=== PATIENT | male | born 2000 | race Caucasian/White ===

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

== ENCOUNTER 2021-05-12 21:19 | Emergency (ER) | payer BC, OTHER ==
[2021-05-12] MEDS ORDERED: Fluorescein Opthalmic Strip ONE (21:31)
[2021-05-12] MEDS ORDERED: Proparacaine 0.5% Opth 15 ML BOT ONE (21:31)
== END 2021-05-12 22:05 | disposition home or self-care (01) ==
LOC: ERS 21:19
DX: H16.133 Photokeratitis, bilateral (principal); F17.290 Nicotine dependence, other tobacco product, uncomplicated
CPT/HCPCS: 99283

== ENCOUNTER 2022-10-09 10:56 | Outpatient (CLI) | payer BC | END 2022-10-09 10:57 | disposition home or self-care (01) | LOC: RAD 10:56 | PROVIDERS: ATTEND Family Medicine | DX: S19.9XXA Unspecified injury of neck, initial encounter (principal); S12.600A Unspecified displaced fracture of seventh cervical vertebra, initial encounter for closed fracture | CPT/HCPCS: 72040 ==

== ENCOUNTER 2022-10-09 11:38 | Observation (INO) | payer BC ==
[~2022-10-09 11:38] MED LIST changes: -EPINEPHrine 1 MG/ML AMP ONE; -Gadobenate Dimeglumine 529 MG/1 ML (20ML VIAL) ONE; +Iopamidol-370 76% 500 ML MDV (1 ML CHARGE) ONE; -Iopamidol-M 300 61% 15 ML VIAL ONE; -Lidocaine 1% PF 10 ML AMP ONE; -Sodium Chloride 0.9% 50 ML ONE
[2022-10-09] MEDS ORDERED: fentaNYL 50 mcg/mL 1 mL Vial ONE (12:09)
[2022-10-09] MEDS ORDERED: Ondansetron PF 4 MG/2 ML Vial ONE (12:09)
[2022-10-09 12:15] LABS: #Eosinphils 0.2 thou/uL (0.0-0.7); #Neutrophils 7.6 thou/uL (1.40-6.50); %Basophils 0.4 % (0.0-1.0); %Eosinophils 1.5 % (0.0-10.0); %Lymphocytes 22.4 % (21.0-51.0); %Neutrophils 66.5 % (42.0-75.0); Hemoglobin 13.9 g/dL (14.0-18.0); Mean Corpuscular HGB CONC 32.6 g/dL (32.0-36.0); Platelet Count 295 10x3/uL (130-400); RBC Distribution Width 13.2 % (11.5-14.5); White Blood Cell (WBC) Count 11.4 10x3/uL (4.8-10.8)
[2022-10-09 12:40] LABS: ALT (SGPT) 15 U/L (8-55); AST (SGOT) 23 U/L (5-34); Albumin 3.9 g/dL (3.5-5.0); Alkaline Phosphatase 84 U/L (40-110); Anion Gap 16 mmol/L (10-20); BUN (Urea Nitrogen) 11 mg/dL (8.9-20.6); Bilirubin, Total 0.4 mg/dL (0.2-1.2); Calc. Creatinine Clearance 0 mL/min (70-130); Calcium 9.2 mg/dL (7.8-10.44); Carbon Dioxide 26 mmol/L (22-29); Chloride 103 mmol/L (98-107); Estimated GFR 125; Globulin 2.7 g/dL (2.4-3.5); Glucose 88 mg/dL (70-105); Potassium 4.6 mmol/L (3.5-5.1); Protein, Total 6.6 g/dL (6.0-8.3); Sodium 140 mmol/L (136-145)
[2022-10-09] MEDS ORDERED: Morphine 4 MG/ML VIAL ONE (14:22)
[2022-10-09] MEDS ORDERED: Dexamethasone 10 MG/ML VIAL ONE (14:52)
[2022-10-09] MEDS ORDERED: Dextrose 5% in Water 1,000 ML IV PRN (15:47)
[2022-10-09] MEDS ORDERED: Morphine 2 MG/ML VIAL SLOW IVP PRN (15:47)
[2022-10-09] MEDS ORDERED: Ondansetron ODT 4 MG TAB PO PRN (15:47)
[2022-10-09] MEDS ORDERED: Glucagon 1 MG/ML KIT IM PRN (15:47)
[2022-10-09] MEDS ORDERED: Ipratropium/Albuterol 3 ML NEB NEB PRN (15:47)
[2022-10-09] MEDS ORDERED: Ondansetron PF 4 MG/2 ML Vial IVP PRN (15:47)
[2022-10-09] MEDS ORDERED: Dextrose 50% Abboject 50 ML SYRINGE SLOW IVP PRN (15:47)
[2022-10-09 17:34] VITALS: BMI 18.8
[2022-10-09] MEDS: Sodium Chloride 0.9% 1,000 ML IV SCH (17:40)
[2022-10-09] MEDS: Morphine 4 MG/ML VIAL SLOW IVP PRN ×2 (17:41→20:54)
[2022-10-09] MEDS: Dexamethasone 4 mg/ml Vial SLOW IVP SCH ×2 (17:42→22:45)
[2022-10-09] MEDS ORDERED: traMADol HCl 50 MG TAB PO PRN (20:06)
[2022-10-09] MEDS: Famotidine/PF 20 mg/2ml Vial SLOW IVP SCH (20:54)
[2022-10-09] MEDS: Pregabalin 50 MG CAP PO SCH (20:56)
[2022-10-09] MEDS: Cyclobenzaprine 10 MG TAB PO PRN (20:57)
[2022-10-09] MEDS: Acetaminophen 500 MG TAB PO SCH (22:43)
[2022-10-09] MEDS: traMADol HCl 50 MG TAB PO SCH (22:44)
[2022-10-10] MEDS: Morphine 4 MG/ML VIAL SLOW IVP PRN (03:43)
[2022-10-10] MEDS: Cyclobenzaprine 10 MG TAB PO PRN (03:45)
[2022-10-10] MEDS: Sodium Chloride 0.9% 1,000 ML IV SCH (03:45)
[2022-10-10] MEDS: Dexamethasone 4 mg/ml Vial SLOW IVP SCH ×2 (03:45→09:52)
[2022-10-10] MEDS: traMADol HCl 50 MG TAB PO SCH ×2 (06:01→11:08)
[2022-10-10] MEDS: Acetaminophen 500 MG TAB PO SCH ×2 (06:03→11:07)
[2022-10-10 06:14] LABS: #Monocytes 0.3 thou/uL (0.11-0.59); #Neutrophils 14.9 thou/uL (1.40-6.50); %Basophils 0.1 % (0.0-1.0); %Lymphocytes 6.4 % (21.0-51.0); %Monocytes 1.7 % (0.0-10.0); %Neutrophils 91.2 % (42.0-75.0); Hemoglobin 14.6 g/dL (14.0-18.0); Mean Corpuscular Hemoglobin 28.9 pg (27.0-31.0); Mean Corpuscular Volume 87.5 fl (78.0-98.0); Mean Platelet Volume 9.9 fL (7.4-10.4); Platelet Count 341 10x3/uL (130-400); RBC Distribution Width 12.7 % (11.5-14.5); Red Blood Cell (RBC) Count 5.06 mill/uL (4.70-6.10); White Blood Cell (WBC) Count 16.4 10x3/uL (4.8-10.8)
[2022-10-10 06:53] LABS: Anion Gap 12 mmol/L (10-20); BUN (Urea Nitrogen) 8 mg/dL (8.9-20.6); Calc. Creatinine Clearance 138 mL/min (70-130); Calcium 9.2 mg/dL (7.8-10.44); Carbon Dioxide 26 mmol/L (22-29); Chloride 105 mmol/L (98-107); Estimated GFR 127; Glucose 154 mg/dL (70-105); Potassium 3.9 mmol/L (3.5-5.1); Sodium 139 mmol/L (136-145)
[2022-10-10] MEDS: Famotidine/PF 20 mg/2ml Vial SLOW IVP SCH (09:51)
[2022-10-10] MEDS: Pregabalin 50 MG CAP PO SCH (09:52)
[2022-10-10 13:59] VITALS: BP 133/66; TEMP 98.1
== END 2022-10-10 15:30 | disposition home or self-care (01) ==
LOC: ERS 11:38 → ERHOLD 15:14 → SURG A 17:21
PROVIDERS: ADMIT Surgery; ATTEND Surgery
DX: S12.690A Other displaced fracture of seventh cervical vertebra, initial encounter for closed fracture (principal); F17.210 Nicotine dependence, cigarettes, uncomplicated; W22.8XXA Striking against or struck by other objects, initial encounter; Y93.15 Activity, underwater diving and snorkeling
CPT/HCPCS: 36415; 70450; 70498; 72040; 72125; 72128; 72141; 80048; 80053; 85025; 96361; 96374; 96375; 96376; G0378; G0390; J1100; J2270; J2405; J3010; J7050; Q9967; S0028

== ENCOUNTER 2022-12-01 12:25 | Outpatient (CLI) | payer BC | END 2022-12-01 12:26 | disposition home or self-care (01) | LOC: RAD 12:25 | PROVIDERS: ATTEND Neurological Surgery | DX: S12.690D Other displaced fracture of seventh cervical vertebra, subsequent encounter for fracture with routine healing (principal) | CPT/HCPCS: 72040 ==

== ENCOUNTER 2023-02-22 10:20 | Outpatient (CLI) | payer BC | END 2023-02-22 10:21 | disposition home or self-care (01) | LOC: RAD 10:20 | PROVIDERS: ATTEND Neurological Surgery | DX: S12.9XXD Fracture of neck, unspecified, subsequent encounter (principal) | CPT/HCPCS: 72040 ==

== ENCOUNTER 2023-03-13 13:15 | Outpatient (CLI) | payer BC | END 2023-03-13 13:16 | disposition home or self-care (01) | LOC: SCSMRI 13:15 | PROVIDERS: ATTEND Neurological Surgery | DX: S12.101A Unspecified nondisplaced fracture of second cervical vertebra, initial encounter for closed fracture (principal); S12.690A Other displaced fracture of seventh cervical vertebra, initial encounter for closed fracture; M50.31 Other cervical disc degeneration, high cervical region; M50.321 Other cervical disc degeneration at C4-C5 level; M50.322 Other cervical disc degeneration at C5-C6 level; M43.12 Spondylolisthesis, cervical region; M53.82 Other specified dorsopathies, cervical region | CPT/HCPCS: 72040; 72141 ==

== ENCOUNTER 2023-04-07 18:41 | Emergency (ER) | payer BC | END 2023-04-07 19:13 | disposition home or self-care (01) | LOC: ERS 18:41 | DX: S80.811A Abrasion, right lower leg, initial encounter (principal); X58.XXXA Exposure to other specified factors, initial encounter | CPT/HCPCS: 99283 ==

== ENCOUNTER 2023-10-23 11:11 | Emergency (ER) | payer BC ==
[2023-10-23 11:32] LABS: #Basophils 0.04 10x3/uL (0.0-0.2); %Basophils 0.3 % (0.0-1.0); %Eosinophils 1.5 % (0.0-10.0); %Lymphocytes 36.6 % (21.0-51.0); %Neutrophils 54.3 % (42.0-75.0); Hematocrit 48.7 % (42.0-52.0); Hemoglobin 16.1 g/dL (14.0-18.0); Mean Corpuscular HGB CONC 33.1 g/dL (32.0-36.0); Mean Corpuscular Hemoglobin 28.4 pg (27.0-31.0); Mean Platelet Volume 9.9 fL (7.4-10.4); Platelet Count 286 10x3/uL (130-400); RBC Distribution Width 12.3 % (11.5-14.5); Red Blood Cell (RBC) Count 5.66 mill/uL (4.70-6.10)
[2023-10-23 11:48] LABS: PTT 23.2 sec (22.9-36.1); Prothrombin Time 12.8 sec (12.0-14.7)
[2023-10-23 11:55] LABS: Acetaminophen Less than 10 mcg/mL (10.0-30.0); Alcohol Less than 10.0 mg/dL (Less than 10); Salicylate Less than 8.0 mg/dL (15.0-30.0)
[2023-10-23 12:17] LABS: ALT (SGPT) 75 U/L (8-55); AST (SGOT) 51 U/L (5-34); Albumin 4.2 g/dL (3.5-5.0); Alkaline Phosphatase 72 U/L (40-110); Anion Gap 18 mmol/L (10-20); BUN (Urea Nitrogen) 12 mg/dL (8.9-20.6); Bilirubin, Total 0.5 mg/dL (0.2-1.2); Calc. Creatinine Clearance 0 mL/min (70-130); Calcium 9.6 mg/dL (7.8-10.44); Carbon Dioxide 17 mmol/L (22-29); Chloride 103 mmol/L (98-107); Estimated GFR 109; Globulin 3.3 g/dL (2.4-3.5); Glucose 105 mg/dL (70-105); Potassium 4.8 mmol/L (3.5-5.1); Protein, Total 7.5 g/dL (6.0-8.3); Sodium 133 mmol/L (136-145)
== END 2023-10-23 13:51 | disposition home or self-care (01) ==
LOC: ERS 11:11
DX: S02.2XXA Fracture of nasal bones, initial encounter for closed fracture (principal); S00.81XA Abrasion of other part of head, initial encounter; S30.811A Abrasion of abdominal wall, initial encounter; V89.2XXA Person injured in unspecified motor-vehicle accident, traffic, initial encounter
CPT/HCPCS: 70450; 70486; 71045; 71260; 72125; 72170; 74177; 80053; 80307; 83605; 85025; 85610; 85730; 93005; 96374; G0390; Q9967

== ENCOUNTER 2025-02-10 13:10 | Outpatient (CLI) | payer BC | END 2025-02-10 13:11 | disposition home or self-care (01) | LOC: MRI 13:10 | PROVIDERS: ATTEND Psychiatry & Neurology Neurology | DX: R56.9 Unspecified convulsions (principal); J34.89 Other specified disorders of nose and nasal sinuses | CPT/HCPCS: 70553; 76376 ==